=== PATIENT | male | born 1990 | race Caucasian/White ===

== ENCOUNTER 2021-01-30 09:59 | Inpatient (IN) | payer MEDICAID, OTHER ==
[~2021-01-30] VITALS: Ht 175.3 cm; Wt 88.5 kg
[~2021-01-30 09:59] MED LIST: BUPR-93 PO; QUET200T PO
[2021-01-30 16:29] LABS: COVID AG,FIA SOURCE NASOPHARYNGEAL
[2021-01-30 16:38] LABS: BASOPHILS % (AUTO) 0.5 % (0.0-2.0); EOSINOPHILS % (AUTO) 1.8 % (1.0-6.0); HEMATOCRIT 35.2 % (41-53); HEMOGLOBIN 11.5 g/dL (13.5-17.5); LYMPHOCYTES # (AUTO) 1.7 K/uL (1.0-4.8); MEAN CORPUSCULAR HEMOGLOBIN 28.8 pg (26.0-34.0); MEAN CORPUSCULAR HGB CONC 32.5 G/dL (31.0-37.0); MEAN CORPUSCULAR VOLUME 89 fL (80-100); MONOCYTES # (AUTO) 1.3 K/uL (0.1-1.0); MONOCYTES % (AUTO) 11.8 % (2.0-9.0); NEUTROPHILS # (AUTO) 7.6 K/uL (1.8-7.7); NEUTROPHILS % (AUTO) 69.9 % (40.0-70.0); PLATELET COUNT (AUTO) 313 K/uL (150-450); RED BLOOD CELL COUNT(AUTO) 3.98 MIL/uL (4.50-5.90); RED CELL DISTRIBUTION WIDTH 14.1 % (11.5-14.5)
[2021-01-30] MEDS ORDERED: LORazepam 2 MG TABLET PO ONE (16:45)
[2021-01-30] MEDS ORDERED: QUEtiapine FUMARATE 100 MG TABLET PO ONE (16:45)
[2021-01-30] MEDS ORDERED: BENZTROPINE MESYLATE 2 MG TABLET PO ONE (16:45)
[2021-01-30 16:47] LABS: ANION GAP 5 mmol/L (8-16); CALCIUM, TOTAL 8.7 mg/dL (8.8-10.5); CARBON DIOXIDE 31 mmol/L (22-29); CHLORIDE 100 mmol/L (98-107); GLOMERULAR FILTR. RATE CALC > 60 mL/min (>60); GLUCOSE,RANDOM 94 mg/dL (70-110); POTASSIUM 4.3 mmol/L (3.5-5.1); SODIUM SERUM 136 mmol/L (136-145); UREA NITROGEN, BLOOD 10 mg/dL (7-18)
[2021-01-30 16:54] LABS: ALANINE AMINOTRANSFERASE 117 U/L (12-78); ALBUMIN 3.5 g/dL (3.4-5.0); ALKALINE PHOSPHATASE 96 U/L (46-116); ASPARTATE AMINOTRANSFERASE 255 U/L (15-37); BILIRUBIN,TOTAL 0.8 mg/dL (0.1-1.0); TOTAL PROTEIN, SERUM 7.2 g/dL (6.4-8.2)
[2021-01-30 22:00] VITALS: BP 108/70
[2021-01-31 00:54] VITALS: BP 118/72
[2021-01-31 07:15] LABS: CHOL/HDL RATIO 3.2 (4.2-7.3)
[2021-01-31 08:19] VITALS: BP 130/81
[2021-01-31] MEDS: BACITRACIN 0.9 GM PACKET OINTMENT TP SCH ×2 (09:02→16:45)
[2021-01-31] MEDS ORDERED: ALBUTEROL SULFATE HFA 90 MCG/PUFF 8 GM INHALER IH PRN (10:15)
[2021-01-31] MEDS ORDERED: CloNIDine HCL 0.1 MG TABLET PO PRN (10:15)
[2021-01-31] MEDS ORDERED: ONDANSETRON HCL 4 MG TABLET PO PRN (10:15)
[2021-01-31] MEDS ORDERED: IBUPROFEN 400 MG TABLET PO PRN (10:15)
[2021-01-31] MEDS ORDERED: MAG HYDROX/AL HYDROX/SIMETH ES 30 ML SUSPENSION UDCUP PO PRN (10:15)
[2021-01-31] MEDS ORDERED: DOCUSATE SODIUM 100 MG CAPSULE PO PRN (10:15)
[2021-01-31] MEDS ORDERED: MAGNESIUM HYDROXIDE SUSPENSION 30 ML UDCUP PO PRN (10:15)
[2021-01-31] MEDS ORDERED: PETROLATUM,WHITE 28 GM JELLY TP PRN (10:15)
[2021-01-31] MEDS ORDERED: GuaiFENesin/D-METHORPHAN [SUGAR-FREE] 200-20MG/10 ML SYRUP UDCUP PO PRN (10:15)
[2021-01-31] MEDS ORDERED: LOPERAMIDE HCL 2 MG CAPSULE PO PRN (10:15)
[2021-01-31] MEDS ORDERED: ACETAMINOPHEN 325 MG TABLET PO PRN (10:15)
[2021-01-31] MEDS: BuPROPion HCL XL 150 MG ER TABLET PO SCH (12:03)
[2021-01-31 16:11] VITALS: BP 130/84
[2021-01-31] MEDS ORDERED: SUMAtriptan SUCCINATE 25 MG TABLET PO PRN (19:30)
[2021-01-31] MEDS ORDERED: QUEtiapine FUMARATE 200 MG TABLET PO SCH (21:00)
[2021-01-31] MEDS ORDERED: LORazepam 2 MG/ML VIAL IM ONE (22:45)
[2021-01-31] MEDS ORDERED: DiphenhydrAMINE HCL 50 MG/ML VIAL IM ONE (22:45)
[2021-01-31] MEDS ORDERED: HALOPERIDOL LACTATE 5 MG/ML VIAL IM ONE (22:45)
[2021-01-31] MEDS ORDERED: LORazepam 2 MG/ML VIAL ONE (22:48)
[2021-01-31] MEDS ORDERED: DiphenhydrAMINE HCL 50 MG/ML VIAL ONE (22:48)
[2021-01-31] MEDS ORDERED: HALOPERIDOL LACTATE 5 MG/ML VIAL ONE (22:48)
[2021-02-01 06:27] VITALS: BP 136/89
[2021-02-01] MEDS: LORazepam 2 MG TABLET PO PRN ×2 (08:20→16:29)
[2021-02-01 08:23] VITALS: BP 116/70
[2021-02-01] MEDS: CEPHALEXIN MONOHYDRATE 500 MG CAPSULE PO SCH ×3 (09:27→16:29)
[2021-02-01] MEDS: BACITRACIN 28 GM OINTMENT TP SCH ×2 (09:27→16:29)
[2021-02-01] MEDS: BuPROPion HCL XL 150 MG ER TABLET PO SCH (09:27)
[2021-02-01] MEDS: BACITRACIN 0.9 GM PACKET OINTMENT TP SCH ×2 (09:27→16:30)
[2021-02-01] MEDS: SULFAMETHOX/TRIMETH DS 800-160 MG/TABLET PO SCH ×2 (09:27→16:29)
[2021-02-01] MEDS: NICOTINE 14 MG/24 HOUR PATCH TD PRN (09:28)
[2021-02-01 16:23] VITALS: BP 123/78
[2021-02-01] MEDS: HALOPERIDOL 5 MG TABLET PO PRN (16:29)
[2021-02-01] MEDS: QUEtiapine FUMARATE 200 MG TABLET PO SCH (20:35)
[2021-02-02] MEDS: LORazepam 2 MG TABLET PO PRN ×2 (08:15→16:24)
[2021-02-02] MEDS: HALOPERIDOL 5 MG TABLET PO PRN ×2 (08:15→16:24)
[2021-02-02 08:26] VITALS: BP 121/78
[2021-02-02] MEDS: BACITRACIN 0.9 GM PACKET OINTMENT TP SCH ×2 (08:38→16:24)
[2021-02-02] MEDS: SULFAMETHOX/TRIMETH DS 800-160 MG/TABLET PO SCH ×2 (08:38→16:23)
[2021-02-02] MEDS: BACITRACIN 28 GM OINTMENT TP SCH ×2 (08:38→16:23)
[2021-02-02] MEDS: BuPROPion HCL XL 150 MG ER TABLET PO SCH (08:38)
[2021-02-02] MEDS: CEPHALEXIN MONOHYDRATE 500 MG CAPSULE PO SCH ×3 (08:38→16:23)
[2021-02-02 16:18] VITALS: BP 114/71
[2021-02-02] MEDS: QUEtiapine FUMARATE 200 MG TABLET PO SCH (20:34)
[2021-02-03 01:28] VITALS: BP 132/89
[2021-02-03 08:29] VITALS: BP 131/82
[2021-02-03] MEDS: LORazepam 2 MG TABLET PO PRN ×2 (08:40→16:42)
[2021-02-03] MEDS: BuPROPion HCL XL 150 MG ER TABLET PO SCH (09:06)
[2021-02-03] MEDS: SULFAMETHOX/TRIMETH DS 800-160 MG/TABLET PO SCH ×2 (09:06→16:42)
[2021-02-03] MEDS: BACITRACIN 0.9 GM PACKET OINTMENT TP SCH ×2 (09:06→16:43)
[2021-02-03] MEDS: CEPHALEXIN MONOHYDRATE 500 MG CAPSULE PO SCH ×3 (09:06→16:42)
[2021-02-03] MEDS: BACITRACIN 28 GM OINTMENT TP SCH ×2 (09:06→16:42)
[2021-02-03 16:17] VITALS: BP 121/78
[2021-02-03] MEDS: HALOPERIDOL 5 MG TABLET PO PRN (16:42)
[2021-02-03] MEDS: QUEtiapine FUMARATE 200 MG TABLET PO SCH (20:26)
[2021-02-04 01:09] VITALS: BP 124/54
[2021-02-04 08:26] VITALS: BP 146/79
[2021-02-04] MEDS: BuPROPion HCL XL 150 MG ER TABLET PO SCH (08:52)
[2021-02-04] MEDS: SULFAMETHOX/TRIMETH DS 800-160 MG/TABLET PO SCH ×2 (08:52→16:31)
[2021-02-04] MEDS: CEPHALEXIN MONOHYDRATE 500 MG CAPSULE PO SCH ×3 (08:53→16:31)
[2021-02-04] MEDS: BACITRACIN 0.9 GM PACKET OINTMENT TP SCH ×2 (08:53→21:34)
[2021-02-04] MEDS: BACITRACIN 28 GM OINTMENT TP SCH ×2 (09:33→21:34)
[2021-02-04] MEDS: LORazepam 2 MG TABLET PO PRN ×2 (10:20→16:41)
[2021-02-04 16:13] VITALS: BP 141/80
[2021-02-04] MEDS: QUEtiapine FUMARATE 200 MG TABLET PO SCH (20:50)
[2021-02-05 06:17] VITALS: BP 138/76
[2021-02-05 08:10] VITALS: BP 115/72
[2021-02-05] MEDS: BACITRACIN 0.9 GM PACKET OINTMENT TP SCH ×2 (08:41→16:37)
[2021-02-05] MEDS: SULFAMETHOX/TRIMETH DS 800-160 MG/TABLET PO SCH ×2 (08:41→16:36)
[2021-02-05] MEDS: LORazepam 2 MG TABLET PO PRN ×2 (08:41→12:41)
[2021-02-05] MEDS: BuPROPion HCL XL 150 MG ER TABLET PO SCH (08:41)
[2021-02-05] MEDS: CEPHALEXIN MONOHYDRATE 500 MG CAPSULE PO SCH ×3 (08:41→16:36)
[2021-02-05] MEDS: BACITRACIN 28 GM OINTMENT TP SCH ×2 (08:41→16:36)
[2021-02-05] MEDS: MULTIVITAMINS, THERAPEUTIC TABLET PO SCH (08:41)
[2021-02-05] MEDS: HALOPERIDOL 5 MG TABLET PO PRN (09:05)
[2021-02-05 16:14] VITALS: BP 112/61
[2021-02-05] MEDS: QUEtiapine FUMARATE 200 MG TABLET PO SCH (20:20)
[2021-02-06 06:57] VITALS: BP 130/76
[2021-02-06 08:40] VITALS: BP 118/68
[2021-02-06] MEDS: SULFAMETHOX/TRIMETH DS 800-160 MG/TABLET PO SCH ×2 (08:48→16:35)
[2021-02-06] MEDS: BACITRACIN 28 GM OINTMENT TP SCH ×2 (08:48→16:36)
[2021-02-06] MEDS: LORazepam 2 MG TABLET PO PRN ×2 (08:48→13:38)
[2021-02-06] MEDS: BuPROPion HCL XL 150 MG ER TABLET PO SCH (08:49)
[2021-02-06] MEDS: CEPHALEXIN MONOHYDRATE 500 MG CAPSULE PO SCH ×3 (08:49→16:36)
[2021-02-06] MEDS: MULTIVITAMINS, THERAPEUTIC TABLET PO SCH (08:49)
[2021-02-06] MEDS: BACITRACIN 0.9 GM PACKET OINTMENT TP SCH (08:50)
[2021-02-06] MEDS: NICOTINE 14 MG/24 HOUR PATCH TD PRN (10:16)
[2021-02-06 16:16] VITALS: BP 117/79
[2021-02-06] MEDS: HALOPERIDOL 5 MG TABLET PO PRN (16:36)
[2021-02-06] MEDS: QUEtiapine FUMARATE 200 MG TABLET PO SCH (20:17)
[2021-02-07 01:04] VITALS: BP 107/77
[2021-02-07] MEDS: LORazepam 2 MG TABLET PO PRN ×2 (08:15→12:34)
[2021-02-07] MEDS: MULTIVITAMINS, THERAPEUTIC TABLET PO SCH (08:38)
[2021-02-07] MEDS: CEPHALEXIN MONOHYDRATE 500 MG CAPSULE PO SCH ×3 (08:38→16:35)
[2021-02-07] MEDS: SULFAMETHOX/TRIMETH DS 800-160 MG/TABLET PO SCH ×2 (08:38→16:35)
[2021-02-07] MEDS: BuPROPion HCL XL 150 MG ER TABLET PO SCH (08:38)
[2021-02-07] MEDS: BACITRACIN 28 GM OINTMENT TP SCH ×2 (08:39→16:35)
[2021-02-07 08:58] VITALS: BP 118/78
[2021-02-07 16:53] VITALS: BP 116/74
[2021-02-07] MEDS: QUEtiapine FUMARATE 200 MG TABLET PO SCH (20:51)
[2021-02-08 05:29] VITALS: BP 113/68
[2021-02-08] MEDS: LORazepam 2 MG TABLET PO PRN ×3 (08:15→17:00)
[2021-02-08 08:24] VITALS: BP 132/85
[2021-02-08] MEDS: CEPHALEXIN MONOHYDRATE 500 MG CAPSULE PO SCH ×3 (08:44→16:53)
[2021-02-08] MEDS: MULTIVITAMINS, THERAPEUTIC TABLET PO SCH (08:44)
[2021-02-08] MEDS: BACITRACIN 28 GM OINTMENT TP SCH ×2 (08:44→16:51)
[2021-02-08] MEDS: SULFAMETHOX/TRIMETH DS 800-160 MG/TABLET PO SCH ×2 (08:44→16:52)
[2021-02-08] MEDS: BuPROPion HCL XL 150 MG ER TABLET PO SCH (08:44)
[2021-02-08] MEDS: NICOTINE 14 MG/24 HOUR PATCH TD PRN (09:43)
[2021-02-08 16:08] VITALS: BP 105/75
[2021-02-08] MEDS: QUEtiapine FUMARATE 200 MG TABLET PO SCH (20:11)
[2021-02-09 05:58] VITALS: BP 116/74
[2021-02-09 08:20] VITALS: BP 124/77
[2021-02-09] MEDS: CEPHALEXIN MONOHYDRATE 500 MG CAPSULE PO SCH ×3 (08:51→16:31)
[2021-02-09] MEDS: MULTIVITAMINS, THERAPEUTIC TABLET PO SCH (08:51)
[2021-02-09] MEDS: BACITRACIN 28 GM OINTMENT TP SCH ×2 (08:51→16:32)
[2021-02-09] MEDS: SULFAMETHOX/TRIMETH DS 800-160 MG/TABLET PO SCH ×2 (08:52→16:31)
[2021-02-09] MEDS: BuPROPion HCL XL 150 MG ER TABLET PO SCH (08:52)
[2021-02-09] MEDS: LORazepam 2 MG TABLET PO PRN ×3 (08:56→17:47)
[2021-02-09] MEDS: NICOTINE 14 MG/24 HOUR PATCH TD PRN (09:54)
[2021-02-09 16:26] VITALS: BP 113/72
[2021-02-09] MEDS: QUEtiapine FUMARATE 200 MG TABLET PO SCH (20:56)
[2021-02-10 04:53] VITALS: BP 114/72
[2021-02-10] MEDS: LORazepam 2 MG TABLET PO PRN ×3 (08:15→16:20)
[2021-02-10 08:27] VITALS: BP 126/80
[2021-02-10] MEDS: BuPROPion HCL XL 150 MG ER TABLET PO SCH (08:30)
[2021-02-10] MEDS: CEPHALEXIN MONOHYDRATE 500 MG CAPSULE PO SCH ×3 (08:30→16:21)
[2021-02-10] MEDS: BACITRACIN 28 GM OINTMENT TP SCH ×2 (08:30→16:21)
[2021-02-10] MEDS: MULTIVITAMINS, THERAPEUTIC TABLET PO SCH (08:30)
[2021-02-10] MEDS: SULFAMETHOX/TRIMETH DS 800-160 MG/TABLET PO SCH ×2 (08:30→16:20)
[2021-02-10] MEDS: NICOTINE 14 MG/24 HOUR PATCH TD PRN (08:55)
[2021-02-10 16:26] VITALS: BP 130/77
[2021-02-10] MEDS: QUEtiapine FUMARATE 200 MG TABLET PO SCH (20:22)
[2021-02-11 04:30] VITALS: BP 124/74
[2021-02-11] MEDS: LORazepam 2 MG TABLET PO PRN ×3 (08:00→17:00)
[2021-02-11] MEDS: NICOTINE 14 MG/24 HOUR PATCH TD PRN (08:15)
[2021-02-11 08:19] VITALS: BP 124/72
[2021-02-11] MEDS: MULTIVITAMINS, THERAPEUTIC TABLET PO SCH (09:03)
[2021-02-11] MEDS: BuPROPion HCL XL 150 MG ER TABLET PO SCH (09:03)
[2021-02-11 16:22] VITALS: BP 132/84
[2021-02-11] MEDS: HALOPERIDOL 5 MG TABLET PO PRN (17:00)
[2021-02-11] MEDS: ZOLPIDEM TARTRATE 10 MG TABLET PO PRN (20:25)
[2021-02-11] MEDS: QUEtiapine FUMARATE 200 MG TABLET PO SCH (20:25)
[2021-02-12 02:05] VITALS: BP 128/86
[2021-02-12] MEDS: BuPROPion HCL XL 150 MG ER TABLET PO SCH (08:45)
[2021-02-12] MEDS: MULTIVITAMINS, THERAPEUTIC TABLET PO SCH (08:45)
[2021-02-12] MEDS: LORazepam 2 MG TABLET PO PRN ×2 (10:02→16:13)
[2021-02-12 10:33] VITALS: BP 121/81
[2021-02-12] MEDS: NICOTINE 14 MG/24 HOUR PATCH TD PRN (10:36)
[2021-02-12] MEDS: HALOPERIDOL 5 MG TABLET PO PRN (16:13)
[2021-02-12 16:19] VITALS: BP 132/83
[2021-02-12] MEDS: QUEtiapine FUMARATE 200 MG TABLET PO SCH (20:49)
[2021-02-12] MEDS: ZOLPIDEM TARTRATE 10 MG TABLET PO PRN (22:03)
[2021-02-13 00:18] VITALS: BP 126/80
[2021-02-13 07:09] LABS: COVID AG,FIA SOURCE NASAL SWAB
[2021-02-13] MEDS: LORazepam 2 MG TABLET PO PRN ×3 (08:00→17:20)
[2021-02-13] MEDS: BuPROPion HCL XL 150 MG ER TABLET PO SCH (08:36)
[2021-02-13] MEDS: MULTIVITAMINS, THERAPEUTIC TABLET PO SCH (08:36)
[2021-02-13 08:39] VITALS: BP 121/76
[2021-02-13] MEDS ORDERED: ZOLPIDEM TARTRATE 5 MG TABLET PO PRN (09:15)
[2021-02-13 16:34] VITALS: BP 135/78
[2021-02-13] MEDS: QUEtiapine FUMARATE 200 MG TABLET PO SCH (20:33)
[2021-02-14] MEDS: LORazepam 2 MG TABLET PO PRN ×3 (00:36→12:15)
[2021-02-14 00:42] VITALS: BP 122/84
[2021-02-14 07:40] LABS: BASOPHILS % (AUTO) 0.7 % (0.0-2.0); EOSINOPHILS % (AUTO) 4.3 % (1.0-6.0); HEMATOCRIT 41.6 % (41-53); HEMOGLOBIN 13.5 g/dL (13.5-17.5); LYMPHOCYTES # (AUTO) 2.6 K/uL (1.0-4.8); LYMPHOCYTES % (AUTO) 37.6 % (22.0-44.0); MEAN CORPUSCULAR HEMOGLOBIN 28.8 pg (26.0-34.0); MEAN CORPUSCULAR HGB CONC 32.5 G/dL (31.0-37.0); MEAN CORPUSCULAR VOLUME 89 fL (80-100); MONOCYTES # (AUTO) 0.6 K/uL (0.1-1.0); MONOCYTES % (AUTO) 8.7 % (2.0-9.0); NEUTROPHILS # (AUTO) 3.3 K/uL (1.8-7.7); NEUTROPHILS % (AUTO) 48.7 % (40.0-70.0); PLATELET COUNT (AUTO) 361 K/uL (150-450); RED CELL DISTRIBUTION WIDTH 13.9 % (11.5-14.5)
[2021-02-14 07:59] LABS: ALANINE AMINOTRANSFERASE 40 U/L (12-78); ALBUMIN 3.6 g/dL (3.4-5.0); ALKALINE PHOSPHATASE 94 U/L (46-116); ANION GAP 8 mmol/L (8-16); ASPARTATE AMINOTRANSFERASE 25 U/L (15-37); BILIRUBIN,TOTAL 0.2 mg/dL (0.1-1.0); CARBON DIOXIDE 28 mmol/L (22-29); CHLORIDE 103 mmol/L (98-107); CHOL/HDL RATIO 4.4 (4.2-7.3); CHOLESTEROL 225 mg/dL (131-200); CREATININE 0.84 mg/dL (0.60-1.30); GLOMERULAR FILTR. RATE CALC > 60 mL/min (>60); GLUCOSE,RANDOM 126 mg/dL (70-110); HDL CHOLESTEROL 51 mg/dL (40-60); LDL CHOL (CALC.) 116 mg/dL (0-130); SODIUM SERUM 139 mmol/L (136-145); TOTAL PROTEIN, SERUM 7.7 g/dL (6.4-8.2); TRIGLYCERIDES 291 mg/dL (15-150); UREA NITROGEN, BLOOD 9 mg/dL (7-18)
[2021-02-14] MEDS: BuPROPion HCL XL 150 MG ER TABLET PO SCH (08:27)
[2021-02-14] MEDS: MULTIVITAMINS, THERAPEUTIC TABLET PO SCH (08:27)
[2021-02-14 09:46] VITALS: BP 127/78
[2021-02-14] MEDS: NICOTINE 14 MG/24 HOUR PATCH TD PRN (12:38)
== END 2021-02-14 13:00 | disposition home or self-care (01) | DRG 750 ==
LOC: EDUNIT# 09:59 → EMS 09:59 → B2X 21:30 → B3A 02-01 00:32
PROVIDERS: ADMIT Psychiatry & Neurology Child & Adolescent Psychiatry; ATTEND Psychiatry & Neurology Child & Adolescent Psychiatry
DX: F20.0 Paranoid schizophrenia (principal); Z59.0 Homelessness; D64.9 Anemia, unspecified; F10.10 Alcohol abuse, uncomplicated; I10 Essential (primary) hypertension; Z20.822 Contact with and (suspected) exposure to COVID-19; F12.90 Cannabis use, unspecified, uncomplicated; Z87.891 Personal history of nicotine dependence
CPT/HCPCS: 80053; 80061; 80076; 85025; 99285; G0480; J1200; J1630; J2060

== ENCOUNTER 2021-05-10 20:25 | Inpatient (IN) | payer MEDICAID, OTHER ==
[~2021-05-10] VITALS: Ht 175.3 cm; Wt 85.9 kg
[2021-05-10 21:04] LABS: BASOPHILS % (AUTO) 0.7 % (0.0-2.0); EOSINOPHILS % (AUTO) 2.3 % (1.0-6.0); HEMATOCRIT 36.1 % (41-53); HEMOGLOBIN 12.1 g/dL (13.5-17.5); LYMPHOCYTES # (AUTO) 2.7 K/uL (1.0-4.8); LYMPHOCYTES % (AUTO) 37.2 % (22.0-44.0); MEAN CORPUSCULAR HEMOGLOBIN 28.8 pg (26.0-34.0); MEAN CORPUSCULAR HGB CONC 33.6 G/dL (31.0-37.0); MEAN CORPUSCULAR VOLUME 86 fL (80-100); MONOCYTES % (AUTO) 14.2 % (2.0-9.0); NEUTROPHILS # (AUTO) 3.3 K/uL (1.8-7.7); NEUTROPHILS % (AUTO) 45.6 % (40.0-70.0); PLATELET COUNT (AUTO) 392 K/uL (150-450); RED BLOOD CELL COUNT(AUTO) 4.21 MIL/uL (4.50-5.90); RED CELL DISTRIBUTION WIDTH 13.8 % (11.5-14.5)
[2021-05-10 21:13] LABS: ANION GAP 7 mmol/L (8-16); CALCIUM, TOTAL 8.8 mg/dL (8.8-10.5); CARBON DIOXIDE 28 mmol/L (22-29); CHLORIDE 102 mmol/L (98-107); CREATININE 1.02 mg/dL (0.60-1.30); GLOMERULAR FILTR. RATE CALC > 60 mL/min (>60); GLUCOSE,RANDOM 121 mg/dL (70-110); POTASSIUM 3.9 mmol/L (3.5-5.1); SODIUM SERUM 137 mmol/L (136-145); UREA NITROGEN, BLOOD 25 mg/dL (7-18)
[2021-05-10] MEDS ORDERED: BENZ1TAB10 PO (21:21)
[2021-05-10] MEDS ORDERED: HALO5TAB2 PO (21:21)
[2021-05-10] MEDS ORDERED: ESCI-8 PO (21:21)
[2021-05-10] MEDS ORDERED: MIRT-89 PO (21:21)
[2021-05-10 21:24] LABS: ALANINE AMINOTRANSFERASE 49 U/L (12-78); ALBUMIN 3.6 g/dL (3.4-5.0); ALKALINE PHOSPHATASE 102 U/L (46-116); ASPARTATE AMINOTRANSFERASE 40 U/L (15-37); BILIRUBIN,TOTAL 0.3 mg/dL (0.1-1.0); TOTAL PROTEIN, SERUM 7.5 g/dL (6.4-8.2); VALPROIC ACID < 3 mcg/mL (50-100)
[2021-05-10 21:49] LABS: AMPHET/METH SCREEN,URINE POSITIVE (NEGATIVE); BARBITURATE SCREEN, URINE NEGATIVE (NEGATIVE); BENZODIAZEPINES SCREEN,URINE NEGATIVE (NEGATIVE); CANNABINOID SCREEN,URINE POSITIVE (NEGATIVE); COCAINE SCREEN,URINE NEGATIVE (NEGATIVE); METHADONE SCREEN, URINE NEGATIVE (NEGATIVE); OPIATE SCREEN,URINE NEGATIVE (NEGATIVE); PHENCYCLIDINE SCREEN,URINE NEGATIVE (NEGATIVE)
[2021-05-10 22:33] LABS: COVID AG,FIA SOURCE NASOPHARYNGEAL
[2021-05-11 00:51] VITALS: BP 133/77
[2021-05-11] MEDS ORDERED: INFLUENZA VIRUS VACCINE QVS 2021-22 (6MO+)/PF 60 MCG/0.5 ML SYRINGE IM. ONE (01:45)
[2021-05-11 06:56] LABS: CHOL/HDL RATIO 3.3 (4.2-7.3)
[2021-05-11 08:08] VITALS: BP 126/82
[2021-05-11] MEDS: LORazepam 2 MG TABLET PO PRN ×3 (10:03→21:27)
[2021-05-11] MEDS: BuPROPion HCL XL 150 MG ER TABLET PO SCH (10:04)
[2021-05-11] MEDS: BENZTROPINE MESYLATE 1 MG TABLET PO SCH ×3 (10:04→16:06)
[2021-05-11] MEDS: HALOPERIDOL 5 MG TABLET PO SCH ×3 (10:04→16:06)
[2021-05-11] MEDS: ESCITALOPRAM OXALATE 10 MG TABLET PO SCH (10:05)
[2021-05-11] MEDS ORDERED: MAG HYDROX/AL HYDROX/SIMETH ES 30 ML SUSPENSION UDCUP PO PRN (14:30)
[2021-05-11] MEDS ORDERED: GuaiFENesin/D-METHORPHAN [SUGAR-FREE] 200-20MG/10 ML SYRUP UDCUP PO PRN (14:30)
[2021-05-11] MEDS ORDERED: IBUPROFEN 400 MG TABLET PO PRN (14:30)
[2021-05-11] MEDS ORDERED: ONDANSETRON HCL 4 MG TABLET PO PRN (14:30)
[2021-05-11] MEDS ORDERED: LOPERAMIDE HCL 2 MG CAPSULE PO PRN (14:30)
[2021-05-11] MEDS ORDERED: ALBUTEROL SULFATE HFA 90 MCG/PUFF 8 GM INHALER IH PRN (14:30)
[2021-05-11] MEDS ORDERED: DOCUSATE SODIUM 100 MG CAPSULE PO PRN (14:30)
[2021-05-11] MEDS ORDERED: CloNIDine HCL 0.1 MG TABLET PO PRN (14:30)
[2021-05-11] MEDS ORDERED: PETROLATUM,WHITE 28 GM JELLY TP PRN (14:30)
[2021-05-11] MEDS ORDERED: MAGNESIUM HYDROXIDE SUSPENSION 30 ML UDCUP PO PRN (14:30)
[2021-05-11] MEDS ORDERED: ACETAMINOPHEN 325 MG TABLET PO PRN (14:30)
[2021-05-11 16:13] VITALS: BP 138/74
[2021-05-11] MEDS: NICOTINE 14 MG/24 HOUR PATCH TD PRN (17:12)
[2021-05-11] MEDS: MIRTAZAPINE 15 MG TABLET PO SCH (21:23)
[2021-05-11] MEDS: QUEtiapine FUMARATE 200 MG TABLET PO SCH (21:24)
[2021-05-11 21:25] VITALS: BP 125/68
[2021-05-12] MEDS: LORazepam 2 MG TABLET PO PRN ×2 (04:11→14:35)
[2021-05-12] MEDS: BENZTROPINE MESYLATE 1 MG TABLET PO SCH ×3 (08:24→16:20)
[2021-05-12] MEDS: BuPROPion HCL XL 150 MG ER TABLET PO SCH (08:24)
[2021-05-12] MEDS: HALOPERIDOL 5 MG TABLET PO SCH ×3 (08:25→16:20)
[2021-05-12] MEDS: ESCITALOPRAM OXALATE 10 MG TABLET PO SCH (08:25)
[2021-05-12 16:14] VITALS: BP 121/78
[2021-05-12] MEDS: QUEtiapine FUMARATE 200 MG TABLET PO SCH (20:05)
[2021-05-12] MEDS: MIRTAZAPINE 15 MG TABLET PO SCH (20:05)
[2021-05-13] MEDS: LORazepam 2 MG TABLET PO PRN ×4 (02:06→22:36)
[2021-05-13] MEDS: ZOLPIDEM TARTRATE 10 MG TABLET PO PRN (02:06)
[2021-05-13 08:08] VITALS: BP 140/95
[2021-05-13] MEDS: HALOPERIDOL 5 MG TABLET PO SCH ×3 (09:41→16:12)
[2021-05-13] MEDS: BuPROPion HCL XL 150 MG ER TABLET PO SCH (09:41)
[2021-05-13] MEDS: BENZTROPINE MESYLATE 1 MG TABLET PO SCH ×3 (09:41→16:12)
[2021-05-13] MEDS: ESCITALOPRAM OXALATE 10 MG TABLET PO SCH (09:41)
[2021-05-13 16:12] VITALS: BP 123/74
[2021-05-13] MEDS: MIRTAZAPINE 15 MG TABLET PO SCH (20:14)
[2021-05-13] MEDS: QUEtiapine FUMARATE 200 MG TABLET PO SCH (20:14)
[2021-05-13] MEDS: HALOPERIDOL 5 MG TABLET PO PRN (22:36)
[2021-05-14] MEDS: LORazepam 2 MG TABLET PO PRN ×4 (05:19→23:55)
[2021-05-14] MEDS: HALOPERIDOL 5 MG TABLET PO PRN (05:19)
[2021-05-14] MEDS: BENZTROPINE MESYLATE 1 MG TABLET PO SCH ×3 (08:32→17:18)
[2021-05-14] MEDS: BuPROPion HCL XL 150 MG ER TABLET PO SCH (08:33)
[2021-05-14] MEDS: ESCITALOPRAM OXALATE 10 MG TABLET PO SCH (08:33)
[2021-05-14] MEDS: HALOPERIDOL 5 MG TABLET PO SCH ×3 (08:33→17:18)
[2021-05-14] MEDS: NICOTINE 14 MG/24 HOUR PATCH TD PRN (09:24)
[2021-05-14 09:25] VITALS: BP 136/73
[2021-05-14 16:55] VITALS: BP 140/76
[2021-05-14] MEDS: MIRTAZAPINE 15 MG TABLET PO SCH (20:09)
[2021-05-14] MEDS: QUEtiapine FUMARATE 200 MG TABLET PO SCH (20:09)
[2021-05-14] MEDS: ZOLPIDEM TARTRATE 10 MG TABLET PO PRN (23:55)
[2021-05-15 00:03] VITALS: BP 109/75
[2021-05-15 08:43] VITALS: BP 117/77
[2021-05-15] MEDS: BuPROPion HCL XL 150 MG ER TABLET PO SCH (09:34)
[2021-05-15] MEDS: BENZTROPINE MESYLATE 1 MG TABLET PO SCH ×3 (09:34→16:03)
[2021-05-15] MEDS: ESCITALOPRAM OXALATE 10 MG TABLET PO SCH (09:34)
[2021-05-15] MEDS: HALOPERIDOL 5 MG TABLET PO SCH ×3 (09:35→16:03)
[2021-05-15] MEDS: NICOTINE 14 MG/24 HOUR PATCH TD PRN (09:35)
[2021-05-15] MEDS: LORazepam 2 MG TABLET PO PRN ×2 (14:37→20:30)
[2021-05-15 16:00] VITALS: BP 102/65
[2021-05-15] MEDS: MIRTAZAPINE 15 MG TABLET PO SCH (20:30)
[2021-05-15] MEDS: QUEtiapine FUMARATE 200 MG TABLET PO SCH (20:30)
[2021-05-16] MEDS: ZOLPIDEM TARTRATE 10 MG TABLET PO PRN (03:11)
[2021-05-16] MEDS: LORazepam 2 MG TABLET PO PRN ×4 (03:11→22:52)
[2021-05-16 03:15] VITALS: BP 121/78
[2021-05-16] MEDS: ESCITALOPRAM OXALATE 10 MG TABLET PO SCH (07:43)
[2021-05-16] MEDS: BENZTROPINE MESYLATE 1 MG TABLET PO SCH ×3 (07:43→17:01)
[2021-05-16] MEDS: BuPROPion HCL XL 150 MG ER TABLET PO SCH (07:43)
[2021-05-16] MEDS: HALOPERIDOL 5 MG TABLET PO SCH ×3 (07:44→17:01)
[2021-05-16 08:37] VITALS: BP 113/73
[2021-05-16] MEDS: NICOTINE 14 MG/24 HOUR PATCH TD PRN (10:17)
[2021-05-16 16:05] VITALS: BP 129/77
[2021-05-16] MEDS: MIRTAZAPINE 15 MG TABLET PO SCH (20:34)
[2021-05-16] MEDS: QUEtiapine FUMARATE 200 MG TABLET PO SCH (20:34)
[2021-05-16] MEDS: HALOPERIDOL 5 MG TABLET PO PRN (22:52)
[2021-05-17 08:15] VITALS: BP 122/74
[2021-05-17] MEDS: BENZTROPINE MESYLATE 1 MG TABLET PO SCH ×3 (08:17→16:17)
[2021-05-17] MEDS: ESCITALOPRAM OXALATE 10 MG TABLET PO SCH (08:17)
[2021-05-17] MEDS: BuPROPion HCL XL 150 MG ER TABLET PO SCH (08:17)
[2021-05-17] MEDS: HALOPERIDOL 5 MG TABLET PO SCH ×3 (08:17→16:17)
[2021-05-17] MEDS: LORazepam 2 MG TABLET PO PRN ×2 (13:20→17:47)
[2021-05-17 14:07] LABS: COVID AG,FIA SOURCE NASOPHARYNGEAL
[2021-05-17 16:34] VITALS: BP 135/69
[2021-05-17] MEDS: MIRTAZAPINE 15 MG TABLET PO SCH (20:05)
[2021-05-17] MEDS: QUEtiapine FUMARATE 200 MG TABLET PO SCH (20:05)
[2021-05-18] MEDS: LORazepam 2 MG TABLET PO PRN (04:12)
[2021-05-18 04:13] VITALS: BP 139/72
[2021-05-18] MEDS: BuPROPion HCL XL 150 MG ER TABLET PO SCH (08:15)
[2021-05-18] MEDS: BENZTROPINE MESYLATE 1 MG TABLET PO SCH (08:15)
[2021-05-18] MEDS: HALOPERIDOL 5 MG TABLET PO SCH (08:15)
[2021-05-18] MEDS: ESCITALOPRAM OXALATE 10 MG TABLET PO SCH (08:15)
[2021-05-18] MEDS ORDERED: HALO5TAB2 PO (08:31)
== END 2021-05-18 09:40 | disposition home or self-care (01) | DRG 750 ==
LOC: EMS 20:30 → 3EC 22:00
PROVIDERS: ADMIT Psychiatry & Neurology Child & Adolescent Psychiatry; ATTEND Psychiatry & Neurology Child & Adolescent Psychiatry
DX: F25.1 Schizoaffective disorder, depressive type (principal); E86.0 Dehydration; R45.851 Suicidal ideations; D64.9 Anemia, unspecified; Z20.822 Contact with and (suspected) exposure to COVID-19; F12.10 Cannabis abuse, uncomplicated; R10.13 Epigastric pain; F32.A Depression, unspecified; F15.10 Other stimulant abuse, uncomplicated; F17.200 Nicotine dependence, unspecified, uncomplicated; Z79.899 Other long term (current) drug therapy
CPT/HCPCS: 80053; 80061; 80164; 85025; 90686; 99285; G0480

== ENCOUNTER 2021-08-24 13:25 | Inpatient (IN) | payer MEDICAID, OTHER ==
[~2021-08-24] VITALS: Ht 177.8 cm; Wt 83.0 kg
[~2021-08-24 13:25] MED LIST changes: +BENZ1TAB10 PO; +ESCI-8 PO; +HALO5TAB2 PO; +MIRT-89 PO
[2021-08-24 14:30] LABS: BASOPHILS % (AUTO) 0.3 % (0.0-2.0); EOSINOPHILS % (AUTO) 0.9 % (1.0-6.0); HEMATOCRIT 35.2 % (41-53); HEMOGLOBIN 11.8 g/dL (13.5-17.5); LYMPHOCYTES # (AUTO) 1.4 K/uL (1.0-4.8); LYMPHOCYTES % (AUTO) 16.8 % (22.0-44.0); MEAN CORPUSCULAR HEMOGLOBIN 28.4 pg (26.0-34.0); MEAN CORPUSCULAR HGB CONC 33.3 G/dL (31.0-37.0); MEAN CORPUSCULAR VOLUME 85 fL (80-100); MONOCYTES # (AUTO) 1.1 K/uL (0.1-1.0); MONOCYTES % (AUTO) 12.9 % (2.0-9.0); NEUTROPHILS # (AUTO) 5.9 K/uL (1.8-7.7); NEUTROPHILS % (AUTO) 69.1 % (40.0-70.0); PLATELET COUNT (AUTO) 268 K/uL (150-450); RED BLOOD CELL COUNT(AUTO) 4.13 MIL/uL (4.50-5.90); RED CELL DISTRIBUTION WIDTH 14.1 % (11.5-14.5)
[2021-08-24 14:45] LABS: ANION GAP 14 mmol/L (8-16); CALCIUM, TOTAL 8.5 mg/dL (8.8-10.5); CARBON DIOXIDE 26 mmol/L (22-29); CHLORIDE 101 mmol/L (98-107); CREATININE 0.82 mg/dL (0.60-1.30); GLOMERULAR FILTR. RATE CALC > 60 mL/min (>60); GLUCOSE,RANDOM 86 mg/dL (70-110); POTASSIUM 3.5 mmol/L (3.5-5.1); SODIUM SERUM 141 mmol/L (136-145); UREA NITROGEN, BLOOD 18 mg/dL (7-18)
[2021-08-24 14:51] LABS: ALANINE AMINOTRANSFERASE 70 U/L (12-78); ALBUMIN 3.8 g/dL (3.4-5.0); ALKALINE PHOSPHATASE 73 U/L (46-116); ASPARTATE AMINOTRANSFERASE 185 U/L (15-37); BILIRUBIN,TOTAL 0.4 mg/dL (0.1-1.0); TOTAL PROTEIN, SERUM 6.9 g/dL (6.4-8.2)
[2021-08-24 17:11] LABS: COVID AG,FIA SOURCE NASOPHARYNGEAL
[2021-08-24 17:19] LABS: APPEARANCE,URINE CLEAR (CLEAR); BILIRUBIN,URINE NEGATIVE (NEGATIVE); GLUCOSE, URINE (UA) NEGATIVE (NEGATIVE); KETONES,URINE =>150 mg/dL (NEGATIVE); LEUKOCYTE ESTERASE ,URINE NEGATIVE (NEGATIVE); NITRATE,URINE NEGATIVE (NEGATIVE); OCCULT BLOOD,URINE NEGATIVE (NEGATIVE); PROTEIN,URINE TRACE mg/dL (NEGATIVE); SPECIFIC GRAVITIY, URINE 1.019 (1.003-1.030); UROBILINOGEN,URINE <=1.0 mg/dL (<=1.0)
[2021-08-24 17:25] LABS: AMPHET/METH SCREEN,URINE POSITIVE (NEGATIVE); BARBITURATE SCREEN, URINE NEGATIVE (NEGATIVE); BENZODIAZEPINES SCREEN,URINE NEGATIVE (NEGATIVE); CANNABINOID SCREEN,URINE NEGATIVE (NEGATIVE); COCAINE SCREEN,URINE NEGATIVE (NEGATIVE); METHADONE SCREEN, URINE NEGATIVE (NEGATIVE); OPIATE SCREEN,URINE NEGATIVE (NEGATIVE)
[2021-08-24 17:26] LABS: PHENCYCLIDINE SCREEN,URINE NEGATIVE (NEGATIVE)
[2021-08-24 18:12] VITALS: BP 141/92
[2021-08-24 18:31] VITALS: BP 141/92
[2021-08-24] MEDS: LORazepam 2 MG TABLET PO PRN (18:45)
[2021-08-24] MEDS: HALOPERIDOL 5 MG TABLET PO PRN (19:03)
[2021-08-25] MEDS ORDERED: BENZOCAINE/MENTHOL LOZENGE PO PRN (05:30)
[2021-08-25] MEDS ORDERED: PETROLATUM,WHITE 28 GM JELLY TP PRN (05:30)
[2021-08-25] MEDS ORDERED: LOPERAMIDE HCL 2 MG CAPSULE PO PRN (05:30)
[2021-08-25] MEDS ORDERED: OMEPRAZOLE 20 MG CAPSULE PO PRN (05:30)
[2021-08-25] MEDS ORDERED: ACETAMINOPHEN 325 MG TABLET PO PRN (05:30)
[2021-08-25] MEDS ORDERED: ONDANSETRON HCL 4 MG TABLET PO PRN (05:30)
[2021-08-25] MEDS ORDERED: BACITRACIN 28 GM OINTMENT TP PRN (05:30)
[2021-08-25] MEDS ORDERED: DOCUSATE SODIUM 100 MG CAPSULE PO PRN (05:30)
[2021-08-25] MEDS ORDERED: MAGNESIUM HYDROXIDE SUSPENSION 30 ML UDCUP PO PRN (05:30)
[2021-08-25] MEDS ORDERED: MAG HYDROX/AL HYDROX/SIMETH ES 30 ML SUSPENSION UDCUP PO PRN (05:30)
[2021-08-25] MEDS ORDERED: IBUPROFEN 600 MG TABLET PO PRN (05:30)
[2021-08-25] MEDS ORDERED: CloNIDine HCL 0.1 MG TABLET PO PRN (05:30)
[2021-08-25] MEDS: LORazepam 2 MG TABLET PO PRN ×3 (06:28→14:36)
[2021-08-25 09:12] VITALS: BP 135/76
[2021-08-25] MEDS: HALOPERIDOL 5 MG TABLET PO PRN ×2 (10:33→14:36)
[2021-08-25 16:06] VITALS: BP 129/81
[2021-08-25] MEDS: QUEtiapine FUMARATE 200 MG TABLET PO SCH (20:25)
[2021-08-26] MEDS: LORazepam 2 MG TABLET PO PRN ×3 (02:29→14:01)
[2021-08-26 08:29] VITALS: BP 143/95
[2021-08-26] MEDS: HALOPERIDOL 5 MG TABLET PO PRN ×3 (09:14→20:13)
[2021-08-26] MEDS: ALBUTEROL SULFATE HFA 90 MCG/PUFF 8 GM INHALER IH PRN (09:16)
[2021-08-26 16:47] VITALS: BP 140/87
[2021-08-26] MEDS: QUEtiapine FUMARATE 200 MG TABLET PO SCH (20:13)
[2021-08-27] MEDS: LORazepam 2 MG TABLET PO PRN ×4 (00:30→18:30)
[2021-08-27 08:15] VITALS: BP 154/97
[2021-08-27] MEDS: HALOPERIDOL 5 MG TABLET PO PRN ×3 (08:20→18:30)
[2021-08-27 16:00] VITALS: BP 140/75
[2021-08-27] MEDS: QUEtiapine FUMARATE 200 MG TABLET PO SCH (20:23)
[2021-08-27] MEDS: ZOLPIDEM TARTRATE 10 MG TABLET PO PRN (20:40)
[2021-08-28 08:12] VITALS: BP 139/80
[2021-08-28] MEDS: LORazepam 2 MG TABLET PO PRN ×3 (08:43→19:15)
[2021-08-28 16:30] VITALS: BP 114/81
[2021-08-28] MEDS: HALOPERIDOL 5 MG TABLET PO PRN (19:15)
[2021-08-28] MEDS: QUEtiapine FUMARATE 200 MG TABLET PO SCH (20:10)
[2021-08-28] MEDS: ZOLPIDEM TARTRATE 10 MG TABLET PO PRN (20:35)
[2021-08-29 08:04] VITALS: BP 121/85
[2021-08-29] MEDS: LORazepam 2 MG TABLET PO PRN (08:23)
[2021-08-29] MEDS: ALBUTEROL SULFATE HFA 90 MCG/PUFF 8 GM INHALER IH PRN (08:45)
[2021-08-29] MEDS ORDERED: QUET200T30 PO ×2 (13:14→13:25)
== END 2021-08-29 11:30 | disposition home or self-care (01) | DRG 750 ==
LOC: EMS 13:35 → 3EC 15:40
PROVIDERS: ADMIT Psychiatry & Neurology Psychiatry; ATTEND Psychiatry & Neurology Psychiatry
DX: F25.9 Schizoaffective disorder, unspecified (principal); F19.10 Other psychoactive substance abuse, uncomplicated; F41.9 Anxiety disorder, unspecified; F43.10 Post-traumatic stress disorder, unspecified; Z20.822 Contact with and (suspected) exposure to COVID-19; G47.00 Insomnia, unspecified; K59.00 Constipation, unspecified; Z87.891 Personal history of nicotine dependence
CPT/HCPCS: 80053; 81003; 84443; 85025; 99285; G0480; J3535

== ENCOUNTER 2021-09-03 12:29 | Inpatient (IN) | payer MEDICAID, OTHER ==
[~2021-09-03] VITALS: Ht 177.8 cm; Wt 84.5 kg
[~2021-09-03 12:29] MED LIST changes: -BENZ1TAB10 PO; -BUPR-93 PO; -ESCI-8 PO; -HALO5TAB2 PO; -MIRT-89 PO; -QUET200T PO; +QUET200T30 PO
[2021-09-03 13:07] LABS: BASOPHILS % (AUTO) 0.7 % (0.0-2.0); EOSINOPHILS % (AUTO) 1.2 % (1.0-6.0); HEMOGLOBIN 14.7 g/dL (13.5-17.5); LYMPHOCYTES # (AUTO) 2.3 K/uL (1.0-4.8); LYMPHOCYTES % (AUTO) 24.7 % (22.0-44.0); MEAN CORPUSCULAR HEMOGLOBIN 28.7 pg (26.0-34.0); MEAN CORPUSCULAR HGB CONC 33.4 G/dL (31.0-37.0); MEAN CORPUSCULAR VOLUME 86 fL (80-100); MONOCYTES # (AUTO) 0.8 K/uL (0.1-1.0); MONOCYTES % (AUTO) 8.9 % (2.0-9.0); NEUTROPHILS # (AUTO) 6.1 K/uL (1.8-7.7); NEUTROPHILS % (AUTO) 64.5 % (40.0-70.0); PLATELET COUNT (AUTO) 410 K/uL (150-450); RED BLOOD CELL COUNT(AUTO) 5.13 MIL/uL (4.50-5.90); RED CELL DISTRIBUTION WIDTH 14.4 % (11.5-14.5)
[2021-09-03 13:14] LABS: ANION GAP 3 mmol/L (8-16); CALCIUM, TOTAL 9.5 mg/dL (8.8-10.5); CARBON DIOXIDE 32 mmol/L (22-29); CHLORIDE 102 mmol/L (98-107); CREATININE 0.88 mg/dL (0.60-1.30); GLOMERULAR FILTR. RATE CALC > 60 mL/min (>60); GLUCOSE,RANDOM 93 mg/dL (70-110); POTASSIUM 4.7 mmol/L (3.5-5.1); SODIUM SERUM 137 mmol/L (136-145); UREA NITROGEN, BLOOD 12 mg/dL (7-18)
[2021-09-03 13:20] LABS: ALANINE AMINOTRANSFERASE 34 U/L (12-78); ALBUMIN 4.4 g/dL (3.4-5.0); ALKALINE PHOSPHATASE 85 U/L (46-116); ASPARTATE AMINOTRANSFERASE 27 U/L (15-37); BILIRUBIN,TOTAL 0.2 mg/dL (0.1-1.0); TOTAL PROTEIN, SERUM 8.1 g/dL (6.4-8.2)
[2021-09-03] MEDS: OLANZapine 5 MG RAPDIS TABLET PO ONE ×2 (14:13→14:20)
[2021-09-03] MEDS: LORazepam 2 MG TABLET PO PRN ×2 (14:26→20:34)
[2021-09-03] MEDS: QUEtiapine FUMARATE 100 MG TABLET PO PRN ×2 (14:26→20:34)
[2021-09-03] MEDS ORDERED: LORazepam 1 MG TABLET PO ONE (14:30)
[2021-09-03 14:32] LABS: COVID AG,FIA SOURCE NASAL SWAB
[2021-09-03 20:37] VITALS: BP 110/75
[2021-09-04 00:41] VITALS: BP 108/68
[2021-09-04 08:18] VITALS: BP 125/62
[2021-09-04] MEDS: LORazepam 2 MG TABLET PO PRN ×3 (08:30→17:40)
[2021-09-04] MEDS: QUEtiapine FUMARATE 100 MG TABLET PO PRN ×3 (08:30→17:40)
[2021-09-04] MEDS ORDERED: PETROLATUM,WHITE 28 GM JELLY TP PRN (10:00)
[2021-09-04] MEDS ORDERED: ACETAMINOPHEN 325 MG TABLET PO PRN (10:00)
[2021-09-04] MEDS ORDERED: BENZOCAINE/MENTHOL LOZENGE PO PRN (10:00)
[2021-09-04] MEDS ORDERED: OMEPRAZOLE 20 MG CAPSULE PO PRN (10:00)
[2021-09-04] MEDS ORDERED: BACITRACIN 28 GM OINTMENT TP PRN (10:00)
[2021-09-04] MEDS ORDERED: LOPERAMIDE HCL 2 MG CAPSULE PO PRN (10:00)
[2021-09-04] MEDS ORDERED: MAGNESIUM HYDROXIDE SUSPENSION 30 ML UDCUP PO PRN (10:00)
[2021-09-04] MEDS ORDERED: CloNIDine HCL 0.1 MG TABLET PO PRN (10:00)
[2021-09-04] MEDS ORDERED: MAG HYDROX/AL HYDROX/SIMETH ES 30 ML SUSPENSION UDCUP PO PRN (10:00)
[2021-09-04] MEDS ORDERED: ALBUTEROL SULFATE HFA 90 MCG/PUFF 8 GM INHALER IH PRN (10:00)
[2021-09-04] MEDS ORDERED: ONDANSETRON HCL 4 MG TABLET PO PRN (10:00)
[2021-09-04] MEDS ORDERED: IBUPROFEN 600 MG TABLET PO PRN (10:00)
[2021-09-04] MEDS ORDERED: DOCUSATE SODIUM 100 MG CAPSULE PO PRN (10:00)
[2021-09-04 16:17] VITALS: BP 105/66
[2021-09-05 00:30] VITALS: BP 110/64
[2021-09-05] MEDS: LORazepam 2 MG TABLET PO PRN ×5 (03:35→20:49)
[2021-09-05] MEDS: ZOLPIDEM TARTRATE 10 MG TABLET PO PRN ×2 (03:35→20:49)
[2021-09-05] MEDS: QUEtiapine FUMARATE 100 MG TABLET PO PRN ×2 (08:04→12:08)
[2021-09-05 09:24] VITALS: BP 122/67
[2021-09-05] MEDS: BuPROPion HCL XL 150 MG ER TABLET PO SCH (13:53)
[2021-09-05] MEDS: NICOTINE 21 MG/24 HOUR PATCH TD SCH (15:03)
[2021-09-05 16:15] VITALS: BP 129/87
[2021-09-06 04:30] VITALS: BP 123/78
[2021-09-06] MEDS: LORazepam 2 MG TABLET PO PRN ×5 (04:50→21:14)
[2021-09-06] MEDS: QUEtiapine FUMARATE 100 MG TABLET PO PRN ×3 (04:51→12:54)
[2021-09-06] MEDS: BuPROPion HCL XL 150 MG ER TABLET PO SCH (08:54)
[2021-09-06] MEDS: NICOTINE 21 MG/24 HOUR PATCH TD SCH (08:54)
[2021-09-06] MEDS ORDERED: BuPROPion HCL XL 150 MG ER TABLET PO SCH (09:00)
[2021-09-06 09:23] VITALS: BP 124/77
[2021-09-06 16:13] VITALS: BP 135/98
[2021-09-06] MEDS: ZOLPIDEM TARTRATE 10 MG TABLET PO PRN (21:14)
[2021-09-07 00:13] VITALS: BP 132/94
[2021-09-07] MEDS: LORazepam 2 MG TABLET PO PRN ×5 (04:31→21:43)
[2021-09-07 07:22] LABS: AMPHET/METH SCREEN,URINE NEGATIVE (NEGATIVE); BARBITURATE SCREEN, URINE NEGATIVE (NEGATIVE); BENZODIAZEPINES SCREEN,URINE NEGATIVE (NEGATIVE); CANNABINOID SCREEN,URINE NEGATIVE (NEGATIVE); COCAINE SCREEN,URINE NEGATIVE (NEGATIVE); METHADONE SCREEN, URINE NEGATIVE (NEGATIVE); OPIATE SCREEN,URINE NEGATIVE (NEGATIVE)
[2021-09-07 07:24] LABS: PHENCYCLIDINE SCREEN,URINE NEGATIVE (NEGATIVE)
[2021-09-07 07:42] LABS: APPEARANCE,URINE CLEAR (CLEAR); BILIRUBIN,URINE NEGATIVE (NEGATIVE); GLUCOSE, URINE (UA) NEGATIVE (NEGATIVE); KETONES,URINE NEGATIVE (NEGATIVE); LEUKOCYTE ESTERASE ,URINE NEGATIVE (NEGATIVE); NITRATE,URINE NEGATIVE (NEGATIVE); OCCULT BLOOD,URINE NEGATIVE (NEGATIVE); PH,URINE 6.5 (5.0-8.0); PROTEIN,URINE NEGATIVE (NEGATIVE); SPECIFIC GRAVITIY, URINE 1.002 (1.003-1.030); UROBILINOGEN,URINE <=1.0 mg/dL (<=1.0)
[2021-09-07] MEDS: BuPROPion HCL XL 150 MG ER TABLET PO SCH (08:37)
[2021-09-07 08:41] VITALS: BP 134/89
[2021-09-07] MEDS: NICOTINE 21 MG/24 HOUR PATCH TD SCH (08:43)
[2021-09-07 16:00] VITALS: BP 140/98
[2021-09-07] MEDS ORDERED: QUEtiapine FUMARATE 300 MG TABLET PO SCH (21:00)
[2021-09-07] MEDS ORDERED: QUEtiapine FUMARATE 200 MG TABLET PO SCH (21:00)
[2021-09-07] MEDS: ZOLPIDEM TARTRATE 10 MG TABLET PO PRN (21:43)
[2021-09-08 04:25] VITALS: BP 112/74
[2021-09-08] MEDS: LORazepam 2 MG TABLET PO PRN ×2 (04:26→08:59)
[2021-09-08] MEDS: QUEtiapine FUMARATE 100 MG TABLET PO PRN (04:26)
[2021-09-08] MEDS: NICOTINE 21 MG/24 HOUR PATCH TD SCH (08:03)
[2021-09-08] MEDS: BuPROPion HCL XL 150 MG ER TABLET PO SCH (08:03)
[2021-09-08 08:17] VITALS: BP 117/79
[2021-09-08] MEDS ORDERED: QUET200T30 PO (14:50)
[2021-09-08] MEDS ORDERED: BUPR-49 PO (14:50)
== END 2021-09-08 15:30 | disposition home or self-care (01) | DRG 750 ==
LOC: EMS 12:31 → B3A 16:53
PROVIDERS: ADMIT Psychiatry & Neurology Psychiatry; ATTEND Psychiatry & Neurology Psychiatry
DX: F25.9 Schizoaffective disorder, unspecified (principal); F15.10 Other stimulant abuse, uncomplicated; G47.00 Insomnia, unspecified; K59.00 Constipation, unspecified; F41.9 Anxiety disorder, unspecified; Z20.822 Contact with and (suspected) exposure to COVID-19; Z87.891 Personal history of nicotine dependence
CPT/HCPCS: 80053; 81003; 85025; 87081; 99285; G0480; J3535